=== PATIENT | female | born 1980 | race Caucasian/White ===

== ENCOUNTER 2020-08-04 10:16 | Outpatient (REF) | payer OTHER, MEDICAID, SELFPAY ==
[2020-08-04 12:20] LABS: Alanine Aminotransferase 36 U/L (0-31); Albumin Level 4.8 g/dL (3.5-5.0); Alkaline Phosphatase 95 U/L (39-117); Aspartate Amino Transferase 35 U/L (5-31); Bilirubin Direct 0.2 mg/dL (0.0-0.5); Bilirubin Total 0.6 mg/dL (0.0-1.0); Total Protein 7.1 g/dL (6.5-8.0)
[2020-08-07 21:12] LABS: Lamotrigine Lamictal 8.3 mcg/mL (4.0-18.0)
== END 2020-08-04 10:17 | disposition home or self-care (01) ==
LOC: HO.LAB 10:16
PROVIDERS: PCP Family Medicine; Visit Provider Psychiatry & Neurology Neurology
DX: G40.909 Epilepsy, unspecified, not intractable, without status epilepticus (principal)
CPT/HCPCS: 36415; 80076; 80175

== ENCOUNTER 2023-02-01 11:14 | Outpatient (REF) | payer OTHER, SELFPAY | END 2023-02-01 11:15 | disposition home or self-care (01) | LOC: HO.LAB 11:14 | PROVIDERS: Visit Provider Psychiatry & Neurology Neurology | DX: G40.909 Epilepsy, unspecified, not intractable, without status epilepticus (principal) | CPT/HCPCS: 36415; 80048; 80076 ==

== ENCOUNTER 2025-05-20 09:45 | Outpatient (AMB) | payer OTHER, SELFPAY ==
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
--- OUTSIDE RECORDS SUMMARY | 2025-05-20 11:27 | XMS_ITS | Encounter Summary ---
Author Organization [facility] Address [address] [place] [address] [address] [place] [address] Care Team Providers Care Educational Director Name Role Phone Amanuel Barry DDS Primary Care Provider Cindi Palacio Unavailable [phone] Cindi Palacio Unavailable [phone] Cindi Palacio Primary Care Provider [phone] Yadira Arzate Unavailable [phone] John Cueto DMD Unavailable Unavailable Camryn Roman Unavailable [phone] Encounter Details Date Type Department Care Team (Latest Contact Info) Description 03/22/2022 [facility], Provider, DDS Social History Tobacco Use Types Packs/Day Years Used Date Smoking Tobacco: Never Assessed Comments Unknown Sex and Gender Information Value Date Recorded Sex Assigned at Female 09/22/2022 1:03 PM EST Legal Sex Female 8:40 PM EST Gender Identity Female 06/09/2022 8:40 PM EST Sexual Orientation Straight 06/09/2022 8: 40 PM EST documented as of this encounter Plan of Treatment Upcoming Encounters Date Type Department Care Team (Late st Contact Info) Description 06/17/2025 9:20 AM EST Office Visit [facility] [address] [place] [address] Cindi Palacio FNP [address] [place] [address] documented as of this encounter Visit Diagnoses Not on filedocumented in this encounter Care Teams Educational Director Relationship Specialty Start Date End Date Amanuel Barry DDS PCP - General Dentist 05/26/22 09/04/22 Cindi Palacio FNP PCP - General Family Medicine 09/05/22 Cindi Palacio FNP Family Medicine 05/26/22 09/04/22 Cindi Palacio FNP [facility] Medicine 05/26/22 09/04/22 [place], [place] [address] [place] [address] 04/24/23 04/01/24 John Cueto DMD [address] [place] [address] Dentist 07/19/23 Camryn Roman [address] [place] [address] Dental Eligibility Clerk 07/19/23 documented as of this encounter
--- OUTSIDE RECORDS SUMMARY | 2025-05-20 11:27 | XMS_ITS | Encounter Summary ---
Author Organization [employer] Address [address] [facility] 7t [place] [address] Care Team Providers Care Network Mgr Name Role Phone Cindi Palacio Primary Care Provider [phone] Yadira Arzate Unavailable [phone] John Cueto DMD Unavailable Unavailable Camryn Roman Unavailable [phone] Encounter Details Date Type Department Care Team (Late st Contact Info) Description 02/12/[address] [address] Cindi Palacio FNP [address] [place] [address] Social History Tobacco Use Types Packs/Day Years Used Date Smoking Tobacco: Never Smokeless Tobacco: Never Alcohol Use Standard Drinks/Week Comments Never 0 (1 standard drink = 0.6 oz pur e alcohol) Alcohol Answer Date Recorded How often do you have a drink containing alcohol ? 0 01/18/2024 How many drinks containing a lcohol do you have on a typical day when you are drinking? 0 01/18/2024 How often do you have six or more drinks on one occasion? 0 01/18/2024 Depression Answer Date Recorded Patient Health Questionnaire-9 Score 9 04/18/2023 Housing Stability Answer Date Recorded What is your housing situation today? I have laurie crockett 05/15/[address] you li ve. Do you have problems with any of the following? None of the above 05/15/2023 Food Insecurity Answer Date Recorded Within the past 12 months, y ou worried that your food would run out before you got money to buy more: Never True 10/24/2023 Within the past 12 months,th e food you bought just didn't last and you didn't have enough money to get more: Never True Transportation Answer Date Recorded In the past 12 months, has l ack of transportation kept you from medical appts, meetings, work or from getting things needed for daily living? No 05/15/2023 Intimate Partner Violence Answer Date R ecorded Within the last year, have y ou been afraid of your partner or ex-partner? 2 10/24/2023 Within the last year, have y ou been humiliated or emotionally abused in other ways by your partner or ex-partner? 2 Within the last year, have y ou been kicked, hit, slapped, or otherwise physically hurt by your partner or ex-partner? 2 10/24/2023 Within the last year, have y ou been raped or forced to have any kind of sexual activity by your partner or ex-partner? 2 10/24/2023 Utilities Answer Date Recorded In the past 12 months, has t he [employer], gas, oil or water [employer] threatened to shut off services in your home? No 05/15/2023 Depression Answer Date Recorded Patient Health Questionnaire-2 Score 0 01/18/2024 Comments Unknown Sex and Gender Information Value Date Recorded Sex Assigned at Female 09/22/2022 1:03 PM EST Legal Sex Female 8:40 PM EST Gender Identity Female 06/09/2022 8:40 PM EST Sexual Orientation Straight 06/09/2022 8: 40 PM EST documented as of this encounter Miscellaneous Notes * Telephone Encounter - Angeline Sarmiento - 02/19/2024 9:02 AM EDT Referral processed and faxed * Telephone Encounter - Angeline Sarmiento - 02/18/2024 1:49 PM EDT Auth Submitted, ID #[id number] will check in 24 hours * Telephone Encounter - Prachi Strickland - 02/12/2024 3:11 PM EDT Verified Insurance: Yes Referral Office: [facility] Diagnosis Code:R51.9 Number of Visits Needed:6 NPI# of Facility: NPI# of Provider being referred to: [id number] Phone #:[phone] Fax #:[phone] Due to sooner availability and has had increase head aches and vomiting also seizure activity documented in this encounter Plan of Treatment Upcoming Encounters Date Type Department Care Team (Late st Contact Info) Description 06/17/2025 9:20 AM EST Office Visit [facility] [address] [place] [address] Cindi Palacio FNP [address] [place] [address] documented as of this encounter Visit Diagnoses Not on filedocumented in this encounter Additional Health Concerns Assessment Noted Time PHQ-9 Depression Total Score: 9 04/18/20 3:43 PM EDT documented as of this encounter Care Teams Network Mgr Relationship Specialty Start Date End Date Cindi Palacio FNP PCP - General Family Medicine 09/05/22 [place], [place] [address] [place] [address] 04/24/23 04/01/24 John Cueto DMD [address] [place] [address] Dentist 07/19/23 Camryn Roman [address] [place] [address] Dental Film Processing Shift Supervisor 07/19/23 documented as of this encounter
--- OUTSIDE RECORDS SUMMARY | 2025-05-20 11:27 | XMS_ITS | Encounter Summary ---
Author Organization [employer] Address [address] [place] [address] [address] [place] [address] Care Team Providers Care Soil Conservation Technician Name Role Phone Amanuel Barry DDElton Primary Care Provider [phone] Cindi Palacio Unavailable [phone] Cindi Palacio Unavailable [phone] Cindi Palacio Primary Care Provider [phone] Yadira Arzate Unavailable [phone] John Cueto DMD Unavailable Unavailable Camryn Roman Unavailable [phone] Reason for Visit * Reason Onset Date Comments Follow-up 09/01/2022 has been trying to get her chiropractor ref for over a week but hasn't heard back i think it has to do with PCP issue in ins but when i asked her who is listed on ins card its Cindi palacio so im lost could you possibly help her. Encounter Details Date Type Department Care Team (Late st Contact Info) Description 09/01/[address] [address] Cindi Palacio FNP [address] [place] [address] Follow-up (has been trying to get her chiropractor ref for over a week but hasn't heard back i think it has to do with PCP issue in ins but when i asked her who is listed on ins card its Cindi palacio so im lost could you possibly help her. ) Social History Tobacco Use Types Packs/Day Years [...] Description 06/17/2025 9:20 AM EST Office Visit [facility] 8 [place] [address] Cindi Palacio FNP [address] [place] [address] documented as of this encounter Visit Diagnoses Not on filedocumented in this encounter Care Teams Soil Conservation Technician Relationship Specialty Start Date End Date Amanuel Barry DDS PCP - General Dentist 05/26/22 09/04/22 Cindi Palacio FNP PCP - General Family Medicine 09/05/22 Cindi Palacio FNP Family Medicine 05/26/22 09/04/22 Cindi Palacio FNP Family Medicine 05/26/22 09/04/22 [place], [place] [address] [place] [address] 04/24/23 04/01/24 John Cueto DMD [address] [place] [id number] Dentist 07/19/23 Camryn Roman [address] [place] [address] Dental Construction Recruiter 07/19/23 documented as of this encounter
--- OUTSIDE RECORDS SUMMARY | 2025-05-20 11:27 | XMS_ITS | Encounter Summary ---
Author Organization [employer] Address [address] [facility] 7t [place] [address] Care Team Providers Care Industrial Editor Name Role Phone Cindi Palacio Primary Care Provider [phone] Yadira Arzate Unavailable [phone] John Cueto DMD Unavailable Unavailable Camryn Roman Unavailable Encounter Details Date Type Department Care Team (Late st Contact Info) Description 02/25/[address] [address] Cindi Palacio FNP [address] [place] [address] Social History Tobacco Use Types Packs/Day [...] the past 12 months, has t he [employer], gas, oil or water [employer] threatened to shut off services in your [...] * Telephone Encounter - Angeline Sarmiento - 03/25/2024 12:03 PM EDT lmtcb * Telephone Encounter - Angeline Sarmiento - 02/26/2024 2:43 PM EDT Called patient to see where she is going for Gastro and which provider she is seeing, LMTCB * Telephone Encounter - Sudha Wagner - 02/26/2024 12:28 PM EDT She needs a referral to a specific surgeon within her [place] network please. * Telephone Encounter - Gerry Kelly - 02/25/2024 11:52 AM EDT Patient informs her remedial reading teacher told her she would need a surgery and she would have to ask us to write the referral documented in this encounter Plan of Treatment Upcoming Encounters Date Type Department Care Team (Late st Contact Info) Description 06/17/2025 9:20 AM EST Office Visit [address] [address] Cindi Palacio FNP [address] [place] [address] documented as of this encounter Visit Diagnoses Not on filedocumented in this encounter Additional Health Concerns Assessment Noted Time PHQ-9 Depression Total Score: 9 04/18/20 3:43 PM EDT documented as of this encounter Care Teams Industrial Editor Relationship Specialty Start Date End Date Cindi Palacio FNP PCP - General Family Medicine 09/05/22 [place], [place] [address] [place] [address] 04/24/23 04/01/24 John Cueto DMD [address] [place] [address] Dentist 07/19/23 Camryn Roman [address] [place] [address] Dental Child Care Worker 07/19/23 documented as of this encounter
--- OUTSIDE RECORDS SUMMARY | 2025-05-20 11:27 | XMS_ITS | Clinical Summary ---
Author Organization [employer] Address [address] [place] [address] [address] [place] [address] Care Team Providers Care Raisin Washer Name Role Phone Pia Cindi RIVAS Primary Care Provider [phone] John Cueto DMD Unavailable Unavailable Camryn Roman Unavailable [phone] Allergies Active Allergy Reactions Criticality Noted Date Comments Chlorhexidine Rash Low 03/28/2022 Levetiracetam 03/28/2022 Note: hallucinate and itchy Penicillins Rash Low 03/28/2022 Sulfa Antibiotics 03/28/2022 Note: fatihue Medications * This document contains information received from the source organization and may not represent a complete record from that organization. traZODone (Desyrel) 100 MG tablet in the morning. 03/28/20 22 Active Fycompa 4 MG tablet Take 4 mg by mouth at bedtime. 05/25/20 23 Active clonazePAM (KlonoPIN) 0.5 MG tablet Take 0.5 mg by mouth Once per day. 07/19/20 23 Active triamcinolone (Kenalog) 0.5 % creamIndication s:Dermatitis APPLY THIN LAYER TOPICALLY TO THE AFFECTED AREA TWICE DAILY FOR UP TO 2 WEEKS NEEDED 30 g 1 08/26/19 25 Active lamoTRIgine (LaMICtal) 150 MG tablet Take 2 tablets by mouth in the morning and 2 tablets in the evening. Active Spacer/Aero-Hol ding Chambers (AeroChamber Holding Chamber) deviceIndicatio ns:Bronchospasm 1 each Once per day. 1 each 01/08/20 25 Active propranolol (Inderal) 20 MG tabletIndicatio ns:Intractable chronic migraine without aura and without status migrainosus Take 1 tablet (20 mg) by mouth 2 times daily. 180 tablet 1 02/19/20 25 Active cetirizine (ZyrTEC) 10 MG tabletIndicatio ns:Seasonal allergic rhinitis, unspecified trigger Take 1 tablet (10 mg) by mouth Once per day. 90 tablet 2 02/19/20 25 026 Active omeprazole (PriLOSEC) [address] capsule Take 1 capsule (20 mg) by mouth before breakfast. 90 capsule 3 04/10/20 25 Active SUMAtriptan (Imitrex) 50 MG tabletIndicatio ns:Intractable chronic migraine without aura and without status migrainosus Take 1 tablet (50 mg) by mouth 1 (one) time if needed for migraine. May repeat dose once in 2 hours if no relief. Do not exceed 2 doses in 24 hours. 9 tablet 1 04/16/20 25 Active amitriptyline (Elavil) 25 MG tabletIndicatio ns:Intractable chronic migraine without aura and without status migrainosus Take 1 tablet (25 mg) by mouth at bedtime. 90 tablet 1 04/16/20 25 026 Active albuterol 108 (90 Base) MCG/ACT inhalerIndicati ons:Bronchospas m INHALE 2 PUFFS BY MOUTH EVERY 6 HOURS NEEDED FOR WHEEZING OR SHORTNESS OF BREATH 18 g 1 05/01/20 25 Active albuterol 108 (90 Base) MCG/ACT inhalerIndicati ons:Bronchospas m INHALE 2 PUFFS BY MOUTH EVERY 6 HOURS IF NEEDED FOR WHEEZING OR SHORTNESS OF BREATH 18 g 1 02/28/20 25 025 Discontinued Active Problems Problem Noted Date Diagnosed Date Recurrent genital herpes 02/18/2025 Borderline personality disorder ([facility]/HCC) 2023 Chronic headache disorder 04/10/2024 JAQUAN (obstructive sleep apnea) 04/10/2024 Panic disorder without agoraphobia 04/10/2024 Status post gastric surgery 01/18/2024 Chronic post-traumatic stress disorder Epilepsy ([facility]/HCC) 03/03/2022 Status post hysterectomy 03/03/2022 Generalized anxiety disorder 01/05/2015 Resolved Problems Problem Noted Date Diagnosed Date Resolved Date Morbid obesity with BMI of 5 0.0-59.9, adult (CMS/HCC) 02/18/2025 02/18/2025 Generalized abdominal pain 04/10/2024 0 02/18/2025 Thrombocytopenia 04/10/2024 02/18/2025 Increased body mass index (BMI) 03/28/2022 02/18/2025 Lumbago with sciatica 03/28/20222024 Obstructive sleep apnea syndrome 03/30/2015 02/18/2025 Overview (02/18/2025): AHI 12.5. CPAP TRIAL, 04/22/15, [facility]ML[facility] INCONCLUSIVE. Encounters Date Type Department Care Team Description 04/30/[address] [address] Cindi Palacio FNP Bronchospasm 04/16/2025 8:20 AM EDT Office Visit [address] [address] Cindi Palacio FNP Intractable chronic migraine without aura and without status migrainosus (Primary Dx); Encounter for screening mammogram for malignant neoplasm of breast; Encounter for immunization; Borderline personality disorder (CMS/HCC); Intractable epilepsy without status epilepticus, unspecified epilepsy type (CMS/HCC); Flat wart; Encounter for screening for depression 04/16/[address] [address] Cindi Palacio FNP 04/16/[address] [phone] Cindi Palacio FNP Intractable chronic migraine without aura and without status migrainosus 04/10/[address] [address] Cindi Palacio FNP 03/05/[address] [phone] Mary Ann Pagan 02/27/[address] [address] Cindi Palacio FNP Bronchospasm 02/18/2025 11:20 AM EDT Office Visit [address] [phone] Cindi Palacio FNP Elevated serum hCG (Primary Dx); Status post gastric surgery; Vitamin D deficiency; Intractable epilepsy without status epilepticus, unspecified epilepsy type (CMS/HCC); Status post hysterectomy; Intractable chronic migraine without aura and without status migrainosus; Seasonal allergic rhinitis, unspecified trigger; Plantar wart 02/17/[address] [phone] Cindi Palacio FNP from Last 3 Months Immunizations Immunization Administration Dates Next Due Influenza injectable quadriv alent preservative free 06/01/2023,07/13/2022,05/09/2019 Influenza, IIV3, injectable 05/09/2019, 7,04/30/2015 Influenza, seasonal, injecta ble, preservative free 04/16/2025 Moderna Covid-19 Vaccine 12+ 06/01/2023, 03/17/2022,06/16/2021,2020,11/26/2020 TD (adult), 2 Lf tetanus tox oid, preservative free, adsorbed 06/13/2023 Tdap 04/26/2017 Family History Medical History Relation Name Comments Drug abuse Brother Alcohol abuse Father Alcohol abuse Mother Mental illness Mother Thyroid disease Mother pituitary cancer Mother Ovarian cancer Paternal Grandmother Mental illness Sister Relation Name Status Comments Brother Father Mother Paternal Grandmother Sister Social History Tobacco Use Types Packs/Day Years Used Date Smoking Tobacco: Never Smokeless Tobacco: Never Tobacco Cessation:Counseling Given: Not Answered Alcohol Use Standard Drinks/Week Comments Never 0 [...] housing situation today? I have laurie crockett 04/16/[address] you li ve. Do you have problems with any of the following? None of the above 04/16/2025 Food Insecurity Answer Date Recorded Within the past 12 months, y ou worried that your food would run out before you got money to buy more: Sometimes True 2024 Within the past 12 months,th e food you bought just didn't last and you didn't have enough money to get more: Sometimes True 04/16/2025 Transportation Answer Date Recorded In the past 12 months, has l ack of transportation kept you from medical appts, meetings, work or from getting things needed for daily living? No 04/16/2025 Intimate Partner Violence Answer Date R ecorded [...] the past 12 months, has t he electric, gas, oil or water company threatened to shut off services in your home? No 04/16/2025 Depression Answer Date Recorded Patient Health Questionnaire-2 Score 0 04/16/2025 Internet Access Answer Date Recorded Internet Access Q1 Yes 04/16/2025 Internet Access Q2 Not on file 04/16/2025 Comments No Intention Date Recorded No desire to become (finding) 0 02/18/2025 Sex and Gender Information Value Date Recorded Sex Assigned at Female 09/22/2022 1:03 PM EST Legal Sex Female 8:40 PM EST Gender Identity Female 06/09/2022 8:40 PM EST Sexual Orientation Straight 06/09/2022 8: 40 PM EST Last Filed Vital Signs Vital Sign Reading Time Taken Comments Blood Pressure 122/68 04/16/2025 8:16 AM EDT Pulse 67 04/16/2025 8:16 AM EDT Temperature 36.9 C (98.4 F) 02/18/2025 11:24 AM EDT Respiratory Rate - - Oxygen Saturation 99% 04/16/2025 8:16 AM EDT Inhaled Oxygen Concentration - - Weight 71.9 kg (158 lb 8 oz) 10/27/2024 11:16 AM EDT Height 160 cm (5' 3 ) 10/24/2023 1:40 PM EDT Body Mass Index 28.08 10/24/2023 1:40 PM EDT Plan of Treatment Upcoming Encounters Date Type Department Care Team (Late st Contact Info) Description 06/17/2025 9:20 AM EST Office Visit [facility] [address] [place] [phone] Cindi Palacio FNP [address] [place], [place] [phone] Health Maintenance Due Date Last Done Comments Disability Screening 1981 HPV Vaccines (1 - 3-dose series) 1996 Hepatitis B Vaccines (1 of 3 - 19+ 3-dose series) 2000 Pap Smear 2002 HPV/Cotest 2011 Mammogram 2021 Dental Prophylaxis 02/24/2025 08/26/2024, 0 02/11/2024, 08/08/2023, Additional history exists Dental Oral Exam 02/26/2025 08/28/2024, , 08/08/2023, Additional history exists Dental X-Ray: Full Mouth 03/23/2025 03/22/2022 COVID-19 Vaccine ( season) 2025 06/01/2023, 03/17/2022, 06/16/2021, Additional history exists Dental X-Ray: Bitewings 08/29/2025 08/28/19, 02/11/2024, 08/08/2023, Additional history exists Depression Monitoring 10/14/2025 04/16/2025, 023 Family Planning (PISQ) 02/18/2026 02/18/2025 Alcohol/Substance Use Screening 04/16/2026 04/16/2025 SDOH Screening 04/16/2026 04/16/2025 Tobacco Screening 04/16/2026 04/16/2025 Zoster Vaccines (1 of 2) 2031 DTaP/Tdap/Td Vaccines (3 - Td or Tdap) 06/13/2033 06/13/2023, 04/26/2017 RSV Patients and Patients Aged 60 years or older (1 - 1-dose 75+ series) 2056 HIV Screening Completed 01/18/2024 Hepatitis C Screening Completed 01/18/2024 Influenza Vaccine Completed 04/16/2025, , 07/13/2022, Additional history exists Cervical Cancer Screening Discontinued HIB Vaccines Aged Out No longer eligi ble based on patient's age to complete this topic Hepatitis A Vaccines Aged Out No long er eligible based on patient's age to complete this topic IPV Vaccines Aged Out No longer eligi ble based on patient's age to complete this topic Meningococcal B Vaccine Aged Out No l onger eligible based on patient's age to complete this topic Meningococcal Vaccine Aged Out No vianey oz eligible based on patient's age to complete this topic Pneumococcal Vaccine: Pediatrics (0 to 5 Years) and At-Risk Patients (6 to 49) Years Aged Out No longer eligible based on patient's age to complete this topic RSV under 20 months Aged Out No longe r eligible based on patient's age to complete this topic Rotavirus Vaccines Aged Out No longer eligible based on patient's age to complete this topic Procedures Procedure Name Priority Date/Time Associated Diagnosis Comments CRYOTHERAPY SKIN LESION Routine 04/16/2025 10:19 AM EDT Flat wart US PELVIS TRANSVAGINAL STAT 03/18/2025 2:40 PM EDT Elevated serum hCG Status post hysterectomy IRON, TIBC AND FERRITIN PANEL Routine 02/18/2025 1:35 PM EDT Status post gastric surgery Intractable epilepsy without status epilepticus, unspecified epilepsy type (CMS/HCC) VITAMIN D,25-OH,TOTAL,IA Routine 02/18/2025 1:35 PM EDT Status post gastric surgery Vitamin D deficiency Intractable epilepsy without status epilepticus, unspecified epilepsy type (CMS/HCC) VITAMIN B12 Routine 02/18/2025 1:35 PM EDT Status post gastric surgery Intractable epilepsy without status epilepticus, unspecified epilepsy type (CMS/HCC) PHOSPHATE ( PHOSPHORUS) Routine 02/18/2025 1:35 PM EDT Status post gastric surgery Intractable epilepsy without status epilepticus, unspecified epilepsy type (CMS/HCC) MAGNESIUM Routine 02/18/2025 1:35 PM EDT Status post gastric surgery Intractable epilepsy without status epilepticus, unspecified epilepsy type (CMS/HCC) CBC WITH AUTO DIFFERENTIAL Routine 02/18/2025 1:35 PM EDT Status post gastric surgery Intractable epilepsy without status epilepticus, unspecified epilepsy type (CMS/HCC) COMPREHENSIVE METABOLIC PANEL Routine 02/18/2025 1:35 PM EDT Status post gastric surgery Intractable epilepsy without status epilepticus, unspecified epilepsy type (CMS/HCC) HCG, TOTAL, QL Routine 02/18/2025 1:35 PM EDT Elevated serum hCG Intractable epilepsy without status epilepticus, unspecified epilepsy type (CMS/HCC) Status post hysterectomy POCT , URINE Routine 02/18/2025 11:56 AM EDT Elevated serum hCG BITEWINGS - 4 RADIOGRAPHIC IMAGES Routine 08/28/2024 7:30 AM EST PERIODIC ORAL EVALUATION - ESTABLISHED PATIENT Routine 08/28/2024 7:30 AM EST PROPHYLAXIS - ADULT Routine 08/26/2024 8 :15 AM EST HEPATITIS C AB W/REFL TO HCV RNA, QN, PCR Routine 01/18/2024 3:48 PM EDT HIV 1/2 ANTIGEN/ANTIBODY, FOURTH GENERATION W/RFL Routine 01/18/2024 3:48 PM EDT INTRAORAL - COMPLETE SERIES OF RADIOGRAPHIC IMAGES Routine 03/22/2022 12:00 AM EDT from Last 3 Months or Most Recently Relevant to Health Maintenance Results * Cryotherapy, skin lesion (04/16/2025 10:19 AM EDT) Cindi Martin FNP - 04/16/2025 10:19 AM EDT ROB Artis 04/16/2025 10:23 AM Cryotherapy, skin lesion Date/Time: 04/16/2025 10:19 AM Performed by: ROB Artis Authorized by: ROB Artis Consent: Consent obtained: Verbal Consent given by: Patient Procedure risks and benefits discussed: Yes Patient questions answered: Yes Patient agrees, verbalizes understanding, and wants to proceed: Yes Post-procedure details: Procedure completion: Tolerated well, no immediate complications us Cindi RIVAS DERM PROCEDURE ORDERABLES Viktoria l Result * US Pelvis Transvaginal (03/18/2025 2:40 PM EDT) Anatomical Region Laterality Modality Pelvis Ultrasound 03/18/2025 2:4 0 PM EDT Narrative 03/18/2025 2:40 PM EDT [facility] [address] [place] [address] Ultrasound Report Signed Patient: Prema Haynes MR#: [id number] : 1980 Acct:[id number] Age/Sex: 44 / F ADM Date: 03/18/25 Loc: [facility] Attending Dr: Cindi Palacio DNP Ordering Physician: Cindi Palacio DNP Date of Service: 03/18/25 Procedure(s): US pelvic and transvaginal Accession Number(s): [id number] cc: Olegario Moznon MD Procedure: Pelvic ultrasound, transvaginal and transabdominal 03/18/2025 2:40 PM Indications: Elevated hCG following hysterectomy Comparison: CT 10/27/2024 TECHNIQUE: Transabdominal and transvaginal imaging was performed. FINDINGS: Transabdominal findings: Transabdominal imaging is limited. No significant abnormality. Transvaginal findings: Uterus and endometrium are surgically absent. The bilateral ovaries are surgically absent. There is no gross abnormality in the pelvis on transabdominal or transvaginal view. US/US pelvic and transvaginal IMPRESSION: Limited transabdominal/endovaginal ultrasound in the setting of prior hysterectomy. No gross abnormality. Electronically Signed By: Vahid Melara MD On: 03/18/251509 Dictated By: Vahid Melara MD 03/18/251439 Signed By: Vahid Melara MD 03/18/251509 Procedure Note Donotuseinterpreter, Image - 03/18/[address] [address] Ultrasound Report Signed Patient: Marsha Haynes#: [id number] : 1980Acct:[id number] Age/Sex: 44 / FADM Date: 03/18/25 Loc: [facility] Attending Dr: Cindi Palacio DNP Ordering Physician: Cindi Palacio DNP Date of Service: 03/18/25 Procedure(s): US pelvic and transvaginal Accession Number(s): [id number] cc: Olegario Monzon MD Procedure: Pelvic ultrasound, transvaginal and transabdominal 52:40 PM Indications: Elevated hCG following hysterectomy Comparison: CT 10/27/2024 TECHNIQUE: Transabdominal and transvaginal imaging was performed. FINDINGS: Transabdominal findings: Transabdominal imaging is limited. No significant abnormality. Transvaginal findings: Uterus and endometrium are surgically absent. The bilateral ovaries aresurgically absent. There is no gross abnormality in the pelvis on transabdominal ortransvaginal view. US/US pelvic and transvaginal IMPRESSION: Limited transabdominal/endovaginal ultrasound in the setting of priorhysterectomy. No gross abnormality. Electronically Signed By: Vahid Melara MD On: 03/18/251509 Dictated By: Vahid Melara MD03/18/251439 Signed By: Vahid Melaar MD03/18/251509 us Cindi RIVAS IMG US PROCEDURES Final Result * Vitamin D, 25-Hydroxy, Total, Immunoassay (02/18/2025 1:35 PM EDT) Vitamin D,25-OH, Total, IA 43 30 - 100 ng/mL [facility] Comment: Vitamin D Status 25-OH Vitamin D: Deficiency: <20 ng/mL Insufficiency: 20 - 29 ng/mL Optimal: > or = 30 ng/mL For 25-OH Vitamin D testing on patients on D2-supplementation and patients for whom quantitation of D2 and D3 fractions is required, the QuestAssureD(TM) 25-OH VIT D, (D2,D3), LC/MS/MS is recommended: order code 20576 (patients >2yrs). See Note 1 Note 1 For additional information, please refer to http://education.PhotoRocket/faq/NCO894 (This link is being provided for informational/ educational purposes only.) Blood Venous blood specimen / Unknown 02/18/2025 1:35 PM EDT 02/18/2025 1:36 PM EDT Narrative [facility] - 02/19/2025 9:09 AM EDT FASTING:NO FASTING: NO Cindi Palacio [facility] LAB BLOOD ORDERABLES Final Res ult Performing Organization Address City/[facility]/ZIP Co de Phone Number [facility] [address], [place] [address] [facility] [address] [place] [address] * Iron, TIBC And Ferritin Panel (02/18/2025 1:35 PM EDT) Iron, Total 96 40 - 190 mcg/dL [facility] Iron Binding Capacity 431 250 - 450 mcg/dL (calc) [facility] % Saturation 22 16 - 45 % (calc) [facility] Ferritin 24 16 - 232 ng/mL [facility] Blood 02/18/2025 1:35 PM EDT 02/18/2025 1:36 PM EDT Narrative [facility] - 02/19/2025 9:09 AM EDT FASTING:NO FASTING: NO us Cindi Palacio [facility] LAB BLOOD ORDERABLES Final Res ult [facility] [address] [facility] [place] [address] [facility] [address] [place] [address] * (ABNORMAL) CBC auto differential (02/18/2025 1:35 PM EDT) White Blood Cell Count 9.1 3.8 - 10.8 Thousand/ uL [facility] Red Blood Cell Count 4.07 3.80 - 5.10 Million/u L [facility] Hemoglobin 13.6 11.7 - 15.5 g/dL [facility] Hematocrit 41.3 35.0 - 45.0 % [facility] MCV 101.5(H) 80.0 - 100.0 fL [facility] MCH 33.4(H) 27.0 - 33.0 pg [facility] MCHC 32.9 32.0 - 36.0 g/dL [facility] Comment: For adults, a slight decrease in the calculated MCHC value (in the range of 30 to 32 g/dL) is most likely not clinically significant; however, it should be interpreted with caution in correlation with other red cell parameters and the patient's clinical condition. RDW 12.6 11.0 - 15.0 % [facility] Platelet Count 255 140 - 400 Thousand/ uL [facility] MPV 10.7 7.5 - 12.5 fL [facility] Absolute Neutrophils 5,751 1,500 - 7,800 cells/uL [facility] Absolute Lymphocytes 2,139 850 - 3,900 cells/uL [facility] Absolute Monocytes 464 200 - 950 cells/uL [facility] Absolute Eosinophils 664(H) 15 - 500 cells/uL [facility] Absolute Basophils 82 0 - 200 cells/uL [facility] Neutrophils 63.2 % [facility] Lymphocytes 23.5 % [facility] Monocytes 5.1 % [facility] Eosinophils 7.3 % [facility] Basophils 0.9 % [facility] Blood Venous blood specimen / Unknown 02/18/2025 1:35 PM EDT 02/18/2025 1:36 PM EDT Narrative [facility] - 02/19/2025 9:09 AM EDT FASTING:NO FASTING: NO [facility] LAB BLOOD ORDERABLES Final Res ult Performing Organization Address [facility] de Phone Number [facility] [address] [place] [address], [place] [address] [facility] [address] [place] [phone] * (ABNORMAL) HCG, Total, Qualitative (02/18/2025 1:35 PM EDT) hCG, Total, Qualitative IN[place]ER[place] CLEMENT(A) See Note: [facility] Comment: Reference Range: Reference Range Non-: Negative : Positive Repeat testing is suggested in 2 to 4 days if clinically indicated. Blood Venous blood specimen / Unknown 02/18/2025 1:35 PM EDT 02/18/2025 1:36 PM EDT [facility] - 02/19/2025 9:09 AM EDT FASTING:NO FASTING: NO Cindi Palacio [facility] LAB BLOOD ORDERABLES Final Res ult Performing Organization Address [facility] de Phone Number [facility] [address] [place] [phone] [facility] [address] [place] [phone] * Phosphate (As Phosphorus) (02/18/2025 1:35 PM EDT) Phosphate (As Phosphorus) 4.4 2.5 - 4.5 mg/dL [facility] Blood Venous blood specimen / Unknown 02/18/2025 1:35 PM EDT 02/18/2025 1:36 PM EDT Narrative [facility] - 02/19/2025 9:09 AM EDT FASTING:NO FASTING: NO Cindi Palacio [facility] LAB BLOOD ORDERABLES Final Res ult Performing Organization Address [facility] Co de Phone Number [address], [place] [address] [facility] [address] [place] [address] * Magnesium (02/18/2025 1:35 PM EDT) Magnesium 2.2 1.5 - 2.5 mg/dL [facility] Blood Venous blood specimen / Unknown 02/18/2025 1:35 PM EDT 02/18/2025 1:36 PM EDT Narrative [facility] - 02/19/2025 9:09 AM EDT FASTING:NO FASTING: NO Cindi Palacio [facility] LAB BLOOD ORDERABLES Final Res ult Performing Organization Address [facility] de Phone Number [address], [facility] [place] [address] [facility] [address] [place] [address] * (ABNORMAL) Vitamin B12 (02/18/2025 1:35 PM EDT) Vitamin B12 >2000(H) 200 - 1100 pg/mL [facility] Blood Venous blood specimen / Unknown 02/18/2025 1:35 PM EDT 02/18/2025 1:36 PM EDT Narrative [facility] - 02/19/2025 9:09 AM EDT FASTING:NO FASTING: NO Cindi Palacio [facility] LAB BLOOD ORDERABLES Final Res ult Performing Organization Address [facility] Co de Phone Number [address], [facility] [place] [address] [facility] [address] [place] [address] * (ABNORMAL) Comprehensive Metabolic Panel (02/18/2025 1:35 PM EDT) Glucose 108 65 - 139 mg/dL [facility] Comment: Non-fasting reference interval Urea Nitrogen (BUN) 13 7 - 25 mg/dL [facility] Creatinine, Serum 0.98 0.50 - 0.99 mg/dL [facility] eGFR 73 > OR = 60 mL/min/1. 73m2 [facility] BUN/Creatinine Ratio SEE NOTE: 6 - 22 (calc) [facility] Comment: Not Reported: BUN and Creatinine are within reference range. Sodium 136 135 - 146 mmol/L [facility] Potassium 4.6 3.5 - 5.3 mmol/L [facility] Chloride 100 98 - 110 mmol/L [facility] Carbon Dioxide 25 20 - 32 mmol/L [facility] Calcium 9.7 8.6 - 10.2 mg/dL [facility] Protein, Total 6.5 6.1 - 8.1 g/dL [facility] Albumin 4.4 3.6 - 5.1 g/dL [facility] Globulin 2.1 1.9 - 3.7 g/dL (calc) [facility] Albumin/Globuli n Ratio 2.1 1.0 - 2.5 (calc) [facility] Bilirubin, Total 0.4 0.2 - 1.2 mg/dL [facility] [facility] [place] [employer] Alkaline Phosphatase 71 31 - 125 U/L [facility] AST 33(H) 10 - 30 U/L [facility] [place] [facility] ALT 30(H) 6 - 29 U/L [facility] [place] [facility] Blood Venous blood specimen / Unknown 02/18/2025 1:35 PM EDT 02/18/2025 1:36 PM EDT Narrative [facility] - 02/19/2025 9:09 AM EDT FASTING:NO FASTING: NO Cindi LONGP LAB BLOOD ORDERABLES Final Res ult [facility] [address], [place] [address] [facility] [place] [facility] 200 [place] [address] * POCT , urine manually resulted (02/18/2025 11:56 AM EDT) Pathologist [facility] Preg Test, Ur Negative Negative, Indeterminate, None Detected, Invalid, Specimen unsatisfactory for evaluation, Weakly Positive, 2+ Urine 02/18/2025 11:5 6 AM EDT Cindi LONGP POINT OF CARE TEST ENTER/EDIT ORDERABLES Final Result * Hepatitis C Antibody with Reflex to HCV, RNA, Quantitative, Real-Time PCR (01/18/2024 3:48 PM EDT) [facility] Hepatitis C Antibody NON-REACT JOHN NON-REACT JOHN [facility] [place] [facility] Comment: HCV antibody was non-reactive. There is no laboratory evidence of HCV infection. In most cases, no further action is required. However, if recent HCV exposure is suspected, a test for HCV RNA (test code 18107) is suggested. For additional information please refer to http://education.Opentopic/faq/UWX85b4 (This link is being provided for informational/ educational purposes only.) 01/18/2024 3:48 PM EDT 01/18/2024 3:48 PM EDT Cindi LONGP LAB BLOOD ORDERABLES Final Res ult Performing Organization Address City/[facility]/ZIP Co de Phone Number [employer] [address] [place] [address], [place] [address] [facility] [place] [facility] [address] [place] [address] * HIV-1/2 Antigen and Antibodies, Fourth Generation, with Reflexes (01/18/2024 3:48 PM EDT) [facility] HIV Antigen/Antibody, 4th Generation NON-REAC TIVE NON-REAC TIVE [facility] [place] [facility] Comment: HIV-1 antigen and HIV-1/HIV-2 antibodies were not detected. There is no laboratory evidence of HIV infection. PLEASE NOTE: This information has been disclosed to you from records whose confidentiality may be protected by state law. If your state requires such protection, then the state law prohibits you from making any further disclosure of the information without the specific written consent of the person to whom it pertains, or as otherwise permitted by law. A general authorization for the release of medical or other information is NOT sufficient for this purpose. For additional information please refer to http://education.Opentopic/faq/VJU703 (This link is being provided for informational/ educational purposes only.) The performance of this assay has not been clinically validated in patients less than 2 years old. 01/18/2024 3:48 PM EDT 01/18/2024 3:48 PM EDT Cindi Palacio [facility] LAB BLOOD ORDERABLES Final Res ult [facility] [address], [place] [address] [facility] [place] [facility] 200 [place] [address] from Last 3 Months or Most Recently Relevant to Health Maintenance [facility] MEDICAID STAND ADULT DENTAL - HSN FULL (MEDICAID) DENTAL - [place] MEDICARE PLUS HMO Care Teams Raisin Washer Relationship Specialty Start Date End Date Cindi Palacio FNP PCP - General Family Medicine 09/05/22 John Cueto DMD Dentist 07/19/23 Camryn Roman [address] [facility] [place] [address] Dental Ict Support Technicians 07/19/23
--- OUTSIDE RECORDS SUMMARY | 2025-05-20 11:28 | XMS_ITS | Encounter Summary ---
Author Organization [facility] [employer] Address 75 [facility] 7t [place] [address] Care Team Providers Care Electronics Tech Name Role Phone Cindi Palacio Primary Care Provider [phone] Yadira Arzate Unavailable [phone] John Cueto DMD Unavailable Unavailable Camryn Roman Unavailable [phone] Encounter Details Date Type Department Care Team (Late st Contact Info) Description 10/23/[address] [address] Cindi Palacio FNP [address] [place] [address] Social History Tobacco Use Types Packs/Day Years Used Date Smoking Tobacco: Never Smokeless Tobacco: Never Alcohol Use Standard Drinks/Week Comments Never 0 (1 standard drink = 0.6 oz pur e alcohol) Depression Answer Date Recorded Patient Health Questionnaire-9 [...] Answer Date Recorded Patient Health Questionnaire-2 Score 2 04/18/2023 Comments Unknown Sex and Gender Information Value Date Recorded Sex Assigned at Female 09/22/2022 1:03 PM EST Legal Sex Female 8:40 PM EST Gender Identity Female 06/09/2022 8:40 PM EST Sexual Orientation Straight 06/09/2022 8: 40 PM EST documented as of this encounter Miscellaneous Notes * Telephone Encounter - Zaria Beltran - 10/23/2023 2:43 PM EDT Requesting a referral for wrist fracture, ortho. Dr Lassiter 6 visits S62.10 documented in this encounter Plan of Treatment Upcoming Encounters Date Type Department Care Team (Late st Contact Info) Description 06/17/2025 9:20 AM EST Office Visit [address] [phone] Cindi Palacio FNP 8 [place] [address] documented as of this encounter Visit Diagnoses Not on filedocumented in this encounter Additional Health Concerns Assessment Noted Time PHQ-9 Depression Total Score: 9 04/18/20 3:43 PM EDT documented as of this encounter Care Teams Electronics Tech Relationship Specialty Start Date End Date Cindi Palacio FNP PCP - General Family Medicine 09/05/22 [place], [place] 102 [place] [address] 04/24/23 04/01/24 John Cueto DMD [address] [place] [address] Dentist 07/19/23 Camryn Roman 119 [place] [address] Dental Pocket Grinder Operator 07/19/23 documented as of this encounter
--- OUTSIDE RECORDS SUMMARY | 2025-05-20 11:28 | XMS_ITS | Encounter Summary ---
Author Organization [employer] Address 75 [facility] 7t [place] [address] Care Team Providers Care Panelboard Tank Pumper Name Role Phone Cindi Palacio Primary Care Provider [phone] John Cueto DMD Unavailable Unavailable Camryn Roman Unavailable [phone] Encounter Details Date Type Department Care Team ([facility] st Contact Info) Description 07/28/[address] [facility] 102 [place] [address] Cindi Palacio FNP [address] [place] [address] Social History Tobacco Use Types Packs/Day [...] the past 12 months, has t he [employer], oil or water company threatened to shut [...] * Telephone Encounter - Angeline Sarmiento - 08/07/2024 2:28 PM EST Duplicate task * Telephone Encounter - Angeline Sarmiento - 08/07/2024 2:27 PM EST SHIRLENE betancourt has been faxed to [facility], Will hear back in 1-2 weeks * Telephone Encounter - Sudha Wagner - 07/28/2024 2:01 PM EST Requesting a new script for the chiropractic beginning date of 07/30/2024 to [facility]. Their telephone number is [phone]. Their physical address is [address] [place] [address] in [place] [address] documented in this encounter Plan of Treatment Upcoming Encounters Date Type Department Care Team (Late st Contact Info) Description 06/17/2025 9:20 AM EST Office Visit [facility] 8 [place] [address] Cindi Palacio FNP 8 [place] [address] documented as of this encounter Visit Diagnoses Not on filedocumented in this encounter Additional Health Concerns Assessment Noted Time PHQ-9 Depression Total Score: 9 04/18/20 3:43 PM EDT documented as of this encounter Care Teams Panelboard Tank Pumper Relationship Specialty Start Date End Date Cindi Palacio FNP PCP - General Family Medicine 09/05/22 John Cueto DMD Dentist 07/19/23 Camryn Roman [address] [place] [address] Dental Income Tax Preparer 07/19/23 documented as of this encounter
--- OUTSIDE RECORDS SUMMARY | 2025-05-20 11:28 | XMS_ITS | Encounter Summary ---
Author Organization [employer] Address 75 [facility] 7t [place] [address] Care Team Providers Care Orange Picker Name Role Phone Cindi Palacio Primary Care Provider [phone] John Cueto DMD Unavailable Unavailable Camryn Roman Unavailable [phone] Encounter Details Date Type Department Care Team (Late st Contact Info) Description 08/04/[address] [address] Cindi Palacio FNP [address] [place] [address] Social History Tobacco Use Types Packs/Day [...] the past 12 months, has t he [employer], [employer], oil or water [employer] threatened to shut off services in your [...] * Telephone Encounter - Angeline Sarmiento - 08/26/2024 10:33 AM EST Spoke to [facility], no Auth is required, processed and faxed referral * Telephone Encounter - Angeline Sarmiento - 08/07/2024 2:55 PM EST Spoke to patient and let her know auth has been submitted * Telephone Encounter - Angeline Sarmiento - 08/07/2024 2:27 PM EST SHIRLENE auth has been submitted to [facility], Will hear back in 1-2 weeks * Telephone Encounter - Sudha Wagner - 08/04/2024 9:39 AM EST Needs a new order for her chiropracter. It is [facility] at [address] [place] [address] [place], phone number is [phone]. Please advise patient once done [phone] documented in this encounter Plan of Treatment Upcoming Encounters Date Type Department Care Team ([facility] Contact Info) Description 06/17/2025 9:20 AM EST Office Visit [address] [phone] Cinid Palacio FNP [address] [place] [address] documented as of this encounter Visit Diagnoses Not on filedocumented in this encounter Additional Health Concerns Assessment Noted Time PHQ-9 Depression Total Score: 9 04/18/20 3:43 PM EDT documented as of this encounter Care Teams Orange Picker Relationship Specialty Start Date End Date Cindi Palacio FNP PCP - General Family Medicine 09/05/22 John Cueto DMD Dentist 07/19/23 Camryn Roman 119 [place] [address] Dental Inter Fold Roll Cutter 07/19/23 documented as of this encounter
--- OUTSIDE RECORDS SUMMARY | 2025-05-20 11:28 | XMS_ITS | Encounter Summary ---
Author Organization [employer] Address 75 [facility] 7t [place] [address] Care Team Providers Care Wallet Assembler Name Role Phone Cindi Palacio Primary Care Provider [phone] Yadira Arzate Unavailable [phone] John Cueto DMD Unavailable Unavailable Camryn Rmoan Unavailable [phone] Encounter Details Date Type Department Care Team (Late st Contact Info) Description 03/05/[address] [address] Cindi Palacio FNP [address] [place] [address] Social History Tobacco Use Types Packs/Day [...] the past 12 months, has t he [employer], gas, oil or water [employer] threatened to shut off services in your [...] encounter Miscellaneous Notes * Telephone Encounter - Sudha Wagner - 03/05/2024 11:39 AM EDT Needs a general surgeon , [facility] keeps trying to refer her back to [facility]. Please help with this referral. Gastro sent her to surgeon mahsa [place], [facility] They live her for 8 years now. Please advise documented in this encounter Plan of Treatment Upcoming Encounters Date Type Department Care Team (Late st Contact Info) Description 06/17/2025 9:20 AM EST Office Visit [facility] 8 [place] [address] Cindi Palacio FNP 8 [place], [place] [phone] documented as of this encounter Visit Diagnoses Not on filedocumented in this encounter Additional Health Concerns Assessment Noted Time PHQ-9 Depression Total Score: 9 04/18/20 3:43 PM EDT documented as of this encounter Care Teams Wallet Assembler Relationship Specialty Start Date End Date Cindi Palacio FNP PCP - General Family Medicine 09/05/22 [place], [place] 102 [place] [address] 04/24/23 04/01/24 John Cueto DMD [address] [place] [address] Dentist 07/19/23 Camryn Roman 119 [place] [address] Dental Lath Hand 07/19/23 documented as of this encounter
--- OUTSIDE RECORDS SUMMARY | 2025-05-20 11:28 | XMS_ITS | Encounter Summary ---
Author Organization [employer] Address 75 [facility] 7t [place] [address] Care Team Providers Care Dispatcher Clerk Name Role Phone Cindi Palacio Primary Care Provider [phone] Yadira Arzate Unavailable [phone] John Cueto DMD Unavailable Unavailable Camryn Roman Unavailable [phone] Encounter Details Date Type Department Care Team (Late st Contact Info) Description 10/23/[address] [address] Cindi Palacio FNP [address] [place] [address] Social History Tobacco Use Types Packs/Day [...] encounter Miscellaneous Notes * Telephone Encounter - Toshia Amaya LPN - 10/24/2023 11:48 AM EDT Patient has an apt today at 1:40 with [facility]. Patient is not answering our phone calls. * Telephone Encounter - Rosio Batres RN - 10/23/2023 4:27 PM EDT Left detailed message to go to [facility] tomorrow morning first thing when they open and they should be able to cast the wrist. Let her know they did book the 140 tomorrow in case they are not able to get in. * Telephone Encounter - Kaila Dominguez - 10/23/2023 4:21 PM EDT Pt is calling to make and ER follow up to get a referral to get a cast on a fractured arm . They are looking for an earlier appt , I could only offer 140 same day hold which they took for now , is there anyway they could be booked earlier with cindi palacio tomorrow . Also the referral information is in a separate task they found a place that takes there insurance . documented in this encounter Plan of Treatment Upcoming Encounters Date Type Department Care Team (Late st Contact Info) Description 06/17/2025 9:20 AM EST Office Visit [address] [address] Cindi Palacio FNP 8 [place] [address] documented as of this encounter Visit Diagnoses Not on filedocumented in this encounter Additional Health Concerns Assessment Noted Time PHQ-9 Depression Total Score: 9 04/18/20 3:43 PM EDT documented as of this encounter Care Teams Dispatcher Clerk Relationship Specialty Start Date End Date Cindi Palacio FNP PCP - General Family Medicine 09/05/22 [place], [place] [address] [place] [address] 04/24/23 04/01/24 John Cueto DMD [address] [place] [address] Dentist 07/19/23 Camryn Roman 119 [place] [address] Dental Automobile Damage Field Appraiser 07/19/23 documented as of this encounter
--- OUTSIDE RECORDS SUMMARY | 2025-05-20 11:28 | XMS_ITS | Encounter Summary ---
Author Organization [employer] Address 75 [facility] 7t [place] [address] Care Team Providers Care Public Transit Bus Driver Name Role Phone Cindi Palacio Primary Care Provider [phone] Yadira Arzate Unavailable [phone] John Cueto DMD Unavailable Unavailable Camryn Roman Unavailable [phone] Encounter Details Date Type Department Care Team (Late st Contact Info) Description 02/06/[address] [address] Cindi Palacio FNP [address] [place] [address] Social History Tobacco Use Types Packs/Day Years Used Date Smoking Tobacco: Never Assessed Comments Unknown Sex and Gender Information Value Date Recorded Sex Assigned at Female 09/22/2022 1:03 PM EST Legal Sex Female 8:40 PM EST Gender Identity Female 06/09/2022 8:40 PM EST Sexual Orientation Straight 06/09/2022 8: 40 PM EST documented as of this encounter Miscellaneous Notes * Telephone Encounter - Genia Le - 02/06/2023 1:12 PM EDT [facility] Neurology G40.[address] [place] [address] Dr Nancy Elliott, [place] [address] [facility] Appt Date - 02/01/[address] Sameera Joseph NPI#[id number] F# [phone] P# [phone] documented in this encounter Plan of Treatment Upcoming Encounters Date Type Department Care Team (Late st Contact Info) Description 06/17/2025 9:20 AM EST Office Visit [facility] 8 [place] [address] Cindi Palacio FNP 8 [place] [address] documented as of this encounter Visit Diagnoses Not on filedocumented in this encounter Care Teams Public Transit Bus Driver Relationship Specialty Start Date End Date Cindi Palacio FNP PCP - General Family Medicine 09/05/22 [place], [place] 102 [place] [address] 04/24/23 04/01/24 John Cueto DMD [address] [place] [address] Dentist 07/19/23 Camryn Roman 119 [place] [address] Dental Composition Instructor 07/19/23 documented as of this encounter
--- OUTSIDE RECORDS SUMMARY | 2025-05-20 11:28 | XMS_ITS | Encounter Summary ---
Author Organization [employer] Address 75 [facility] 7t [place] [address] Care Team Providers Care Residence Leasing Agent Name Role Phone Cindi Palacio Primary Care Provider [phone] Yadira Arzate Unavailable [phone] John Cueto DMD Unavailable Unavailable Camryn Roman Unavailable [phone] Encounter Details Date Type Department Care Team (Late st Contact Info) Description 03/17/[address] [address] Cindi Palacio FNP [address] [place] [address] Social History Tobacco Use Types Packs/Day [...] the past 12 months, has t he [employer], gas, oil or water [employer] threatened to shut off services in your [...] * Telephone Encounter - Angeline Sarmiento - 03/27/2024 2:12 PM EDT Duplicate task * Telephone Encounter - Sudha Wagner - 03/17/2024 10:36 AM EDT On 02/28 she saw her gastroentrologist and they are recommending a referral to another surgeon. She was referred elsewhere but they rejected it as they are trying to get her to see her original gastrosurgeon from [place], she lives here now. Please advise. [phone] documented in this encounter Plan of Treatment Upcoming Encounters Date Type Department Care Team (Late st Contact Info) Description 06/17/2025 9:20 AM EST Office Visit [facility] 8 [place] [address] Cindi Palacio FNP 8 [place] [address] documented as of this encounter Visit Diagnoses Not on filedocumented in this encounter Additional Health Concerns Assessment Noted Time PHQ-9 Depression Total Score: 9 04/18/20 3:43 PM EDT documented as of this encounter Care Teams Residence Leasing Agent Relationship Specialty Start Date End Date Cindi Palacio FNP PCP - General Family Medicine 09/05/22 [place], [place] 102 [place] [address] 04/24/23 04/01/24 John Cueto DMD 102 [place] [address] Dentist 07/19/23 Camryn Roman 119 [place] [address] Dental Senior Sas Developer 07/19/23 documented as of this encounter
--- OUTSIDE RECORDS SUMMARY | 2025-05-20 11:28 | XMS_ITS | Encounter Summary ---
Author Organization [employer] Address 75 [facility] 7t [place] [address] Care Team Providers Care Patient Safety Officer Name Role Phone Cindi Palacio Primary Care Provider [phone] John Cueto DMD Unavailable Unavailable Camryn Roman Unavailable [phone] Encounter Details Date Type Department Care Team (Late st Contact Info) Description 04/14/2024 Orders Only [facility] 119 [place] [address] Provider, Not In System Social History Tobacco Use Types Packs/Day Years [...] Description 06/17/2025 9:20 AM EST Office Visit [address] [phone] Cindi Palacio FNP 8 [place] [address] documented as of this encounter Procedures Procedure Name Priority Date/Time Associated Diagnosis Comments TYPE AND SCREEN Routine 04/14/2024 1:22 PM EDT documented in this encounter Results * Type and screen (04/14/2024 1:22 PM EDT) Blood Venous blood specimen / Unknown us Not In System Provider LAB BLOOD BANK TEST ORDER CHRISTIE Final Result documented in this encounter Visit Diagnoses Not on filedocumented in this encounter Additional Health Concerns Assessment Noted Time PHQ-9 Depression Total Score: 9 04/18/20 3:43 PM EDT documented as of this encounter Care Teams Patient Safety Officer Relationship Specialty Start Date End Date Cindi Palacio FNP PCP - General Family Medicine 09/05/22 John Cueto DMD Dentist 07/19/23 Camryn Roman 119 [place] [address] Dental Roofing Contractor 07/19/23 documented as of this encounter
--- OUTSIDE RECORDS SUMMARY | 2025-05-20 11:28 | XMS_ITS | Encounter Summary ---
Author Organization [employer] Address 75 [facility] 7t [place] [address] Care Team Providers Care Voip Network Technician Name Role Phone Cindi Palacio Primary Care Provider [phone] Yadira Arzate Unavailable [phone] RomJohn DMD Unavailable Unavailable Camryn Roman Unavailable [phone] Encounter Details Date Type Department Care Team (Late st Contact Info) Description 05/11/[address] [phone] Cindi Palacio FNP [address] [place] [address] Social History Tobacco Use Types Packs/Day [...] got money to buy more: Sometimes True 2022 Within the past 12 months,th e food you bought just didn't last and you didn't have enough money to get more: Sometimes True 05/15/2023 Transportation Answer Date Recorded In the past 12 months, has l ack of transportation kept you from medical appts, meetings, work or from getting things needed for daily living? No 05/15/2023 Utilities Answer Date Recorded In the past [...] Description 06/17/2025 9:20 AM EST Office Visit [address] [address] Cindi Palacio FNP 8 [place] [address] documented as of this encounter Visit Diagnoses Not on filedocumented in this encounter Additional Health Concerns Assessment Noted Time PHQ-9 Depression Total Score: 9 04/18/20 3:43 PM EDT documented as of this encounter Care Teams Voip Network Technician Relationship Specialty Start Date End Date Cindi Palacio FNP PCP - General Family Medicine 09/05/22 [place], [place] 102 [place] [address] 04/24/23 04/01/24 John Cueto DMD 102 [place] [address] Dentist 07/19/23 Camryn Roman 119 [place] [address] Dental Lead Web Application Developer 07/19/23 documented as of this encounter
--- OUTSIDE RECORDS SUMMARY | 2025-05-20 11:28 | XMS_ITS | Encounter Summary ---
Author Organization [employer] Address 75 [facility] 7t [place] [address] Care Team Providers Care Director Of Safety Name Role Phone Cindi Palacio Primary Care Provider [phone] Yadira Arzate Unavailable [phone] RomJohn DMD Unavailable Unavailable Camryn Roman Unavailable [phone] Encounter Details Date Type Department Care Team (Late st Contact Info) Description 05/15/[address] [phone] Cindi Palacio FNP [address] [place] [address] Social History Tobacco Use Types Packs/Day [...] Description 06/17/2025 9:20 AM EST Office Visit [address] [address] Cindi Palacio FNP 8 [place] [address] documented as of this encounter Visit Diagnoses Not on filedocumented in this encounter Additional Health Concerns Assessment Noted Time PHQ-9 Depression Total Score: 9 04/18/20 3:43 PM EDT documented as of this encounter Care Teams Director Of Safety Relationship Specialty Start Date End Date Cindi Palacio FNP PCP - General Family Medicine 09/05/22 [place], [place] 102 [place] [address] 04/24/23 04/01/24 John Cueto DMD 102 [place] [address] Dentist 07/19/23 Camryn Roman 119 [place] [address] Dental State Epidemiologist 07/19/23 documented as of this encounter
--- OUTSIDE RECORDS SUMMARY | 2025-05-20 11:29 | XMS_ITS | Encounter Summary ---
Author Organization [employer] Address [address] [facility] [address] [place] [address] Care Team Providers Care Sleeping Room Cleaner Name Role Phone Cindi Palacio Primary Care Provider [phone] Yadira Arzate Unavailable [phone] RomJohn DMD Unavailable Unavailable Camryn Roman Unavailable [phone] Encounter Details Date Type Department Care Team (Late st Contact Info) Description 10/11/[address] [phone] Cindi Palacio FNP [address] [place] [id number] Social History Tobacco Use Types Packs/Day [...] * Telephone Encounter - Sudha Wagner - 10/23/2023 1:39 PM EDT Still has a broken wrist that has not been casted. She needs a doctors note to expedite this process per the hospital. Please call patient. Also, fax # to [facility] [phone] * Telephone Encounter - Prachi Strickland - 10/11/2023 4:03 PM EDT Received a request from referrals that is missing authorization form would like to be contacted fax# [phone] documented in this encounter Plan of Treatment Upcoming Encounters Date Type Department Care Team (Late st Contact Info) Description 06/17/2025 9:20 AM EST Office Visit [facility] [address] [place] [address] Cindi Palacio FNP [address] [place] [phone] documented as of this encounter Visit Diagnoses Not on filedocumented in this encounter Additional Health Concerns Assessment Noted Time PHQ-9 Depression Total Score: 9 04/18/20 23 3:43 PM EDT documented as of this encounter Care Teams Sleeping Room Cleaner Relationship Specialty Start Date End Date Cindi Palacio FNP PCP - General Family Medicine 09/05/22 [place] Yadira [address] [place] [address] 04/24/23 04/01/24 John Cueto DMD [address] [place] [address] Dentist 07/19/23 Camryn Roman [address] [place] [id number] Dental Tube Sorter 07/19/23 documented as of this encounter
--- OUTSIDE RECORDS SUMMARY | 2025-05-20 11:29 | XMS_ITS | Clinical Summary ---
Author Organization [facility] Address [address] [place] [address] Care Team Providers Care Fast Food Restaurant Manager Name Role Phone Rani Jamie CEDILLO Primary Care Provider Allergies Active Allergy Reactions Criticality Noted Date Comments Chlorhexidine Gluconate Unknown same as drug listed Chlorahexidine wipes Chlorhexidine Hives,Itching,Photos ens itivity rash,Rash,Swelling High 03/28/2022 Levetiracetam Hallucinations Extreme anxiety Penicillins Itching,Swelling,Pal pit ations,Rash,Cough,Dehyd ration,Weakness High 04/18/2021 Hives, swelling of throat Sulfa (Sulfonamide Antibiotics) Neutropenia 03/28/2022 Note: fatihue States weakness, stomach ache, rash Medications traZODone (DESYREL) 100 mg tablet Take 100 mg by mouth nightly. Active propranoloL (INDERAL) 20 mg tablet Take 20 mg by mouth once a day. Active clonazePAM (KlonoPIN) 0.5 mg tablet Take 0.5 mg by mouth nightly. Active prochlorperazin e (COMPAZINE) 10 mg tablet Take 10 mg by mouth every 8 hours. Breakfast, lunch, dinner Active cholecalciferol (VITAMIN D3) 2,000 unit capsule Vitamin D 2000 UNIT Oral Capsule TAKE 1 CAPSULE DAILY. Refills: 0 Active Active Restasis 0.05 % ophthalmic emulsion SMARTSI Drop(s) In Eye(s) Twice Daily Active fluticasone propionate (FLONASE) 50 mcg/actuation nasal spray SMARTSI-2 [place](s) Both Nares Twice Daily Active Fycompa 4 mg tablet SMARTSI Tablet(s) By Mouth Every Night Active triamcinolone (KENALOG) 0.5 % cream Apply thin layer bid for up to 2 weeks as needed Active lamoTRIgine (LaMICtal) 150 mg tablet Take 150 mg by mouth 2 times a day. 2 tablets at breakfast and 2 tablets at dinner Active MULTIVITAMIN ORAL Take by mouth. Activ e cyanocobalamin (vitamin B-12) 1,000 mcg tablet Take 500 mcg by mouth once a day. Active pyridoxine HCl, vitamin B6, (VITAMIN B-6 ORAL) Take by mouth. Activ e Active Problems Problem Noted Date Diagnosed Date S/P gastric bypass 04/10/2024 Generalized abdominal pain 04/10/2024 Chronic headache disorder 04/10/2024 JAQUAN (obstructive sleep apnea) 04/10/2024 Borderline personality disorder 04/10/2024 Thrombocytopenia 04/10/2024 Panic disorder without agoraphobia 04/10/2024 Chronic post-traumatic stress disorder Lumbago with sciatica 03/28/2022 Increased body mass index (BMI) 03/28/2022 Status post hysterectomy 03/03/2022 Anxiety 01/05/2015 Epilepsy 12/29/2014 Resolved Problems Problem Noted Date Diagnosed Date Resolved Date Psychological factors affect ing morbid obesity 08/23/2015 04/10/2024 Hypovitaminosis D 02/17/2015 04/10/2024 Obesity 01/05/2015 04/10/2024 Family History Medical History Relation Name Comments Other Brother 1 Family History of alcoholism Other Brother 2 Family History of substance abuse Other Mother Family History of substance abuse Relation Name Status Comments Brother 1 Brother 2 Mother Social History Tobacco Use Types Packs/Day Years Used Date Smoking Tobacco: Never Smokeless Tobacco: Never Tobacco Cessation:Counseling Given: Not Answered Comments:: Alcohol Use Standard Drinks/Week Comments Never 0 (1 standard drink = 0.6 oz pur e alcohol) Comments No Sex and Gender Information Value Date Recorded Sex Assigned at Female 04/01/2024 2:52 PM EDT Legal Sex Female 6:45 PM EDT Gender Identity Female 04/10/2024 9:28 AM EDT Sexual Orientation Straight 04/10/2024 9: 28 AM EDT Last Filed Vital Signs Vital Sign Reading Time Taken Comments Blood Pressure 128/74 04/14/2024 10:19 AM EDT Pulse 49 04/14/2024 10:19 AM EDT Temperature 36.3 C (97.3 F) 04/14/2024 9:53 AM EDT Respiratory Rate 16 04/14/2024 10:19 AM EDT Oxygen Saturation 99% 04/14/2024 10:19 AM EDT Inhaled Oxygen Concentration - - Weight 69.7 kg (153 lb 9.6 oz) 04/14/2024 7:07 A M EDT Height 159.5 cm (5' 2.8 ) 04/14/2024 7:07 AM EDT Body Mass Index 27.39 04/14/2024 7:07 AM EDT Plan of Treatment Health Maintenance Due Date Last Done Comments Varicella Vaccines (1 of 2 - 13+ 2-dose series) 1994 Hepatitis B Vaccines (1 of 3 - 19+ 3-dose series) 2000 Mammogram 2021 DTaP,Tdap,and Td Vaccines (1 - Tdap) 06/14/2023 06/13/2023 Alcohol/Substance Use Screening 07/30/2024 Depression Screening and Follow-Up 07/30/2024 Social Drivers of Health Annual Screening 07/30/2024 COVID-19 Vaccine (2024- season) 2025 06/01/2023, 03/17/2022, 06/16/2021, Additional history exists Influenza Vaccine (#1) 2025 , 07/13/2022, 05/09/2019 RSV Vaccine (60+ years old and patients) (1 - 1-dose 75+ series) 2056 Diabetes Screening Discontinued 01/18/2024 HIV Screening Completed 01/18/2024, 01/18/2024 Hepatitis C Screening Completed 01/18/2024 Pneumococcal Vaccine: Pediatric (0-5 Years) and At-Risk Patients (6-50 Years) Aged Out No longer eligible based on patient's age to complete this topic Insurance [facility] Advance Directives * Presumed Full Code (Latest Code Status on File) Date Activated Date Inactivated Comments 04/14/2024 6:36 AM 04/14/2024 1:35 PM Care Teams Fast Food Restaurant Manager Relationship Specialty Start Date End Date Jamie Saravia NP [address] [place] [phone] PCP - General 04/01/24
== END 2025-05-20 10:24 | disposition home or self-care (01) ==
LOC: HO.HSM 09:45
PROVIDERS: PCP Nurse Practitioner Family; Referring Provider Student in an Organized Health Care Education/Training Program; Visit Provider Psychiatry & Neurology Neurology
DX: G40.109 Localization-related (focal) (partial) symptomatic epilepsy and epileptic syndromes with simple partial seizures, not intractable, without status epilepticus (principal); G43.009 Migraine without aura, not intractable, without status migrainosus; F41.1 Generalized anxiety disorder; F51.05 Insomnia due to other mental disorder; F99 Mental disorder, not otherwise specified
CPT/HCPCS: 99214